=== PATIENT | female | born 1965 | race African-American/Black ===

== ENCOUNTER 2020-10-24 05:17 | Inpatient (IN) | payer MEDICAID ==
[2020-10-24] VITALS (7 sets, daily range): BP systolic 126–146; BP diastolic 62–100
[~2020-10-24] VITALS: Ht 160 cm; Wt 81.6 kg
[2020-10-24] MEDS ORDERED: LEVO-T25 MCG PO (06:02)
[2020-10-24 07:33] LABS: HEMATOCRIT 50.1 % (37.0-47.0); HEMOGLOBIN 16.6 gm/dL (12.0-15.0); MCHC 33.2 g/dL (28.0-37.0); MCV 99.5 fL (80.0-100.0); RBC 5.04 mil/uL (4.20-5.00); RDW 12.7 % (10.5-14.5); WBC 8.3 thou/uL (4.0-11.0)
[2020-10-24 07:57] LABS: ALBUMIN 4.2 g/dL (3.4-5.0); CREATININE 0.9 mg/dL (0.6-1.0); DIRECT BILIRUBIN 0.1 mg/dL (<0.1-0.2); POTASSIUM 3.5 mmol/L (3.5-5.1); TOTAL BILIRUBIN 0.7 mg/dL (0.2-1.0); TOTAL PROTEIN 8.7 g/dL (6.4-8.2)
[2020-10-24 08:04] LABS: CALCIUM 10.2 mg/dL (8.5-10.1)
[2020-10-24 08:25] LABS: URINE BILIRUBIN NEGATIVE (Negative); URINE BLOOD NEGATIVE (Negative); URINE CLARITY CLEAR; URINE COLOR YELLOW; URINE GLUCOSE-RANDOM* NEGATIVE (Negative); URINE KETONES TRACE (Negative); URINE LEUKOCYTES-REFLEX TRACE (Negative); URINE NITRITE-REFLEX NEGATIVE (Negative); URINE PROTEIN (DIPSTICK) 1+ (Negative); URINE SPECIFIC GRAVITY 1.025 (1.005-1.035)
[2020-10-24 08:33] LABS: AMP/METHAMP Negative (Negative); BARBITURATES Negative (Negative); BENZODIAZEPINES Negative (Negative); COCAINE POSITIVE (Negative); METHADONE Negative (Negative); OPIATES Negative (Negative); PCP Negative (Negative)
[2020-10-24 08:52] LABS: MUCUS 4-6 Moderate strn/LPF (None Seen)
[2020-10-24 08:54] LABS: BACTERIA-REFLEX 1-9 Few /HPF (None Seen); CASTS None Seen /LPF (None Seen); CRYSTALS None Seen /LPF (None Seen); SQUAMOUS 0-3 Few /LPF (0-3); URINE WBC-REFLEX 0-5 Rare /HPF (0-5)
[2020-10-24 08:55] LABS: URINE RBC None Seen /HPF (0-2)
--- NOTE | 2020-10-24 18:47 | NUR ---
PATIENT ADMITTED FROM ER WITH SBO, PATIENT VERY SLEEPY AND DROWSY. VOMITTED X 2, ZOFRAN 4 MG IV GIVEN. PATIENT IS NPO AT THIS TIME. RIGHT HAND IV IN PLACE, NS AT 100CC/HR STARTED. HX OF ETOH AND COCAINE USE. NICOTINE PATCH APPLIED TO LEFT UPPER ARM. HAVING HARG TO TO DO ADMISSION, PATIENT WILL NOT WAKE FOR ASSESSMENT. THIS RN CALLED DR IVORY FOR PAIN MEDS, HE STATES HE WILL ORDER SMALL DOSE OF FENTANYL. REPORT GIVEN TO ARELY/WILLIAM.
--- NOTE | 2020-10-25 04:39 | NUR ---
PROGRESS PT LETHARGIC BUT WAKES WITH PAIN LUNGS CLEAR BOWEL SOUNDS HYPOACTIVE ABDOMEN TENDER TO PALPATION. PT DRY HEAVING ON AND OFF AND RATES PAIN A 7 TO 10 TAKING FENTANYL 25 MCG IVP WITH SOME EFFECT PT SLEEPS FOR AWHILE SHORTLY AFTER MEDS GIVEN. IVF'S INFUSING ORDERED. PT REMAINS NPO ORAL SWABS FOR COMFORT, VOING QS ABDOMEN SLIGHTLY ROUND AND DISTENDED. VOIDING QS UP T BSC WITH SBA. CONTINUE TO MONITOR.
[2020-10-25 05:58] LABS: ABSOLUTE NEUTROPHILS 3.2 thou/uL (1.4-8.2); BASOPHILS 0.3 % (0.0-2.0); HEMATOCRIT 49.8 % (37.0-47.0); HEMOGLOBIN 16.9 gm/dL (12.0-15.0); LYMPHOCYTES 22.2 % (24.0-44.0); MCH 33.6 pg (26.0-34.0); MCV 98.8 fL (80.0-100.0); MONOCYTES 11.6 % (1.0-8.0); PLATELET COUNT 275 thou/uL (150-400); POLYS 65.9 % (36.0-66.0); RBC 5.05 mil/uL (4.20-5.00); RDW 12.8 % (10.5-14.5); WBC 4.8 thou/uL (4.0-11.0)
[2020-10-25 06:12] LABS: CALCIUM 9.2 mg/dL (8.5-10.1); MAGNESIUM 2.1 mg/dL (1.8-2.4); POTASSIUM 3.1 mmol/L (3.5-5.1)
--- NOTE | 2020-10-25 07:32 | NUR ---
ASSUMED CARE OF PATIENT SHE HAS N&V PULLED OUT IV. ATTEMPTED TO REPLACE WITH NO SUCESS. WILL CALL IV TEAM TO REPLACE. PT ALERT XS 4.
[2020-10-25 08:00] VITALS: BP 138/89
--- NOTE | 2020-10-25 12:38 | NUR ---
Case opened to follow for dc planning needs. Line Operator visited with the pt at bedside. She was able to participate in cm assessment but asked cm to call her dtr Randi and let her know she was here. Line Operator spoke with Randi. She confirms that the pt lives with a male friend and she is from [place]. She came to visit dtr in January/February of this year and has stayed in town. She was living with her sister in [place] prior to this. Randi confirmed that the pt has active [place] Medicaid. [facility]/UR notified. Randi is on her way over to visit with the pt. She reports pt has had a life long issue with mental health and substance abuse. She has hep c and copd as well. She is indep with gait and adl's. Randi is available as needed to help with [place] medicaid application unless pt plans to return to [place]. Cm role introduced. Pt with SBO and surgery consult pending. Will follow along and offer substance abuse resources at ms.
--- NOTE | 2020-10-25 19:31 | NUR ---
CALLED DR HELM TO INFORM HIM THATY PATIENT REFUSED NG AND PULLED IV ACSESS OUT AGAIN HE SAID TO KEEP NPO AND HE WOULD SEE 10/26/20 IV NURSE CALLED TO REPLACE IV ACSESS. PT REFUSED 2ND BAG OF KCL. DAUGHTER HERE TO SEE PATIENT
[2020-10-25 19:34] VITALS: BP 127/87
[2020-10-26] VITALS (41 sets, daily range): BP systolic 55–138; BP diastolic 17–99
--- NOTE | 2020-10-26 02:46 | NUR ---
PT OBSERVED LYING DOWN ON HER BED WITH HER EYES CLOSED.PT EASILY AROUSABLE. PT C/O PAIN ON HER ABD,MANAGED WITH MED.PT NPO AT THIS TIME.PER REPORT PT DRINKS WATER OUT OF THE SINK,EDUCATION GIVEN ON THE IMPORTANCE OF ADHERING TO TX REGIMEN.PT VOICED UNDERSTANDING.[facility] CONT WITH [facility]F ORDERED.CALL LIGHT WITHIN REACH.
--- NOTE | 2020-10-26 11:01 | NUR ---
Assummed care of pt at 0700. Pt a&ox4. C/o abd pain. Prn pain meds administered. Pt went to the OR for surgery. IVF infusing. Awaiting pt to come back to the room for recovery.
[2020-10-26 14:54] LABS: HEMATOCRIT 51.4 % (37.0-47.0); HEMOGLOBIN 16.7 gm/dL (12.0-15.0); MCHC 32.5 g/dL (28.0-37.0); MCV 101.4 fL (80.0-100.0); RBC 5.07 mil/uL (4.20-5.00); RDW 13.3 % (10.5-14.5)
[2020-10-26 14:59] LABS: WBC 1.9 thou/uL (4.0-11.0)
--- NOTE | 2020-10-26 15:45 | NUR ---
Patients daughter here at bedside. Patient more calm with her here.
[2020-10-26 16:19] LABS: CALCIUM 8.2 mg/dL (8.5-10.1); CREATININE 1.4 mg/dL (0.6-1.0); POTASSIUM 3.7 mmol/L (3.5-5.1)
--- NOTE | 2020-10-26 17:09 | NUR ---
VASCULAR ACCESS CONSULTED FOR CENTRAL LINE. PT RESTLESS UNABLE TO POSITION FOR CVAD. TL PICC DONE. PT'S LABS,MEDS,HX,ORDER AND CONSENT VERIFIED. CLAUDIA BASILIC WAS WIDELY PATENT WITH USG. 5FR TL POWER PICC TRIMMED TO 43CM INSERTED TO 1CM EXTERNAL. PT TOLERATED WELL. STAT CXR ORDERED
--- NOTE | 2020-10-26 17:28 | NUR ---
cxr too deep line withdrew for total of 4cm external. picc released for immediate use to choco herman
--- NOTE | 2020-10-26 19:16 | NUR ---
1904- Nurse informed Dr. Palomino of patient not being able to voice and only 5ml in the montes urometer. Montes has been irrigated and changed. It was noted to have thick bah colored discharge blocking the catheter tip. Nurse performed multiple bladder scans which showed to have 275ml and patient expressed she needs to void.
--- NOTE | 2020-10-26 19:50 | NUR ---
HAIR NOT DRAIN WITH MONICA 20 ML OF DARK CHRISTIANA URINE, BLADDER SCAN SHOWING GREATER THAN 200 ML OF URINE IN THE BLADDER. HAIR REPOSITIONED, URINE OUTPUT UNCHANGED. HAIR DC'D AND NEW HAIR INSERTED, IRRIGATED WITH SALINE WITH ONLY THE RETURN OF IRRIGANT AT 1800. PATIENT REPOSITIONED FOR HAIR DRAINAGE, SITLL VERY UNCOMFORTABLE AT 1830 WITH NO URINE OUTPUT VIA HAIR. HAIR DC'D AND NEW HAIR INSERTED, IRRIGATED WITH 100 ML OF STERILE WATER, WITH SMALL AMT OF CHRISTIANA URINE NOTED. PATIENT POSITIONED FOR COMFORT AND DRAINAGE. CALL PLACED TO DR. MEDINA. DR HELM IN AT 1915 AND INFORMED OF ISSUES WITH HAIR.
--- NOTE | 2020-10-26 21:10 | NUR ---
ASSUMED PT CARE AT 1900. PT A&0X4. GROANING, RATING PAIN AT 9/10 WITH HR IN 120S TO 130S AND BP SYTOLIC 80s TO 98s. DR MEDINA AT BEDSIDE; ORDERED A 500ML NS FLUID BOLUS AND STATED TO CONTINUE HAIR IRRIGATION PRN UNTIL U/O PICKS UP. PT IS SLEEPING NOW; 55ML TOTAL U/O SO FAR, HR 110s-120s WILL CONTINUE TO CLOSELY MONITOR PER POC.
--- NOTE | 2020-10-26 21:24 | NUR ---
7913- nurse talked with DR. Palomino in regards to lack of urine output. No new orders at this time.
--- NOTE | 2020-10-26 21:24 | NUR ---
2757- Nurse talked with Dr. Borrego in regards to urine output. No new orders at this time.
--- NOTE | 2020-10-26 21:25 | NUR ---
0- Nurse talked with DR. Palomino in regards to patients lack of urine output. Nurse expressed that bladder scan was performed and it showed 275ml of urine in her bladder. This was performed multiple times. Patient expresses that she needs to pee and wants the catheter out. Multiple attempts made at helping flow of urine. Nurse informed him that montes was replaced and irrigation was attempted with no results. Per Dr. Palomino, irrigate until results obtained.
[2020-10-27] VITALS (53 sets, daily range): BP systolic 73–132; BP diastolic 22–83
[2020-10-27 02:39] LABS: ABSOLUTE NEUTROPHILS 3.1 thou/uL (1.4-8.2); BASOPHILS 0.3 % (0.0-2.0); EOSINOPHILS 0.1 % (0.0-3.0); HEMATOCRIT 47.8 % (37.0-47.0); HEMOGLOBIN 15.6 gm/dL (12.0-15.0); LYMPHOCYTES 7.3 % (24.0-44.0); MCH 32.8 pg (26.0-34.0); MCHC 32.6 g/dL (28.0-37.0); MCV 100.7 fL (80.0-100.0); MONOCYTES 6.8 % (1.0-8.0); POLYS 85.5 % (36.0-66.0); RBC 4.75 mil/uL (4.20-5.00); RDW 13.1 % (10.5-14.5); WBC 3.7 thou/uL (4.0-11.0)
[2020-10-27 02:43] LABS: PLATELET COUNT 181 thou/uL (150-400)
[2020-10-27 02:56] LABS: ALBUMIN 2.1 g/dL (3.4-5.0); CALCIUM 7.3 mg/dL (8.5-10.1); CREATININE 1.9 mg/dL (0.6-1.0); POTASSIUM 3.4 mmol/L (3.5-5.1); TOTAL BILIRUBIN 2.3 mg/dL (0.2-1.0); TOTAL PROTEIN 5.3 g/dL (6.4-8.2)
--- NOTE | 2020-10-27 15:25 | NUR ---
PT RESTING FOR MAJORITY OF THE DAY. PAIN CONTROL AND BOWEL REGIMENT ARE IMPORTANT TODAY. SURGICAL SITES ARE C/D/I, NO S/S OF BLEEDING OR INFECTION. PT'S DAUGHTER WAS AT BEDSIDE FOR APPROX 1.5 HOURS TODAY. IV ACCESS TEAM WAS ASKED TO REVIEW PICC LINE PLACEMENT AND POSSIBLE PULL LINE BACK 4 CM, LINE IS DIFFICULT TO DRAW BLOOD FROM. PT IS NPO WITH SMALL AMOUNTS OF ICE CHIPS PER DR HELM. PT REFUSED NG TUBE PLACEMENT, SHE WAS EDUCATED ABOUT REFUSAL. POTASSIUM REPLACED PER [facility] PROTOCAL. PT AND DAUGHTER WERE UPDATED AND EDUCATED ON PT CONDITION AND POC. PT PROGRESSING TOWARDS POC. LABS/IMAGES/MEDS REVIEWED.
[2020-10-28] VITALS (37 sets, daily range): BP systolic 94–139; BP diastolic 59–87
--- NOTE | 2020-10-28 00:44 | NUR ---
ASSUMED PT CARE AROUND 1900. SHE IS ABLE TO ANSWER ORIENTATION QUESTIONS. C/O GENERALIZED ABDOMINAL PAIN. PRN PAIN MEDICATION GIVEN PER EMAR. ABDOMINAL SURGICAL DRESSINGS C/D/I. IVF INFUSING ORDERED. SBP HAS REMAINED >90 SO FAR TONIGHT. SHE IS STILL TACHYCARDIC WITH HR 120S-130S. INCREASED O2 FROM 5L NC TO 6L NC SPO2 WAS 89% WHILE SLEEPING. PT IS RESTING COMFORTABLY IN BED AT THIS TIME. NO ACUTE DISTRESS NOTED. PROGRESSING SLOWLY TOWARD POC GOALS. WILL CONTINUE TO MONITOR.
--- NOTE | 2020-10-28 05:51 | NUR ---
NO SIGNIFICANT EVENTS OVER NIGHT. PT HAD LOW-GRADE FEVER EARLIER THIS MORNING, BUT IT HAS SINCE RESOLVED. HAIR TO DD W/ ADEQUATE URINE OUTPUT. SHE CONTINUES TO C/O ABDOMINAL PAIN. SHE SLEEPS AFTER DOSES OF PAIN MEDICATION. NO BOWEL MOVEMENT THIS SHIFT, BUT PT STATES SHE IS PASSING FLATUS. BOWEL SOUNDS AUSCULTATED TO BE MORE ACTIVE THIS MORNING. PROGRESSING SLOWLY TOWARD POC GOALS. WILL GIVE REPORT TO ONCOMING NURSE.
--- NOTE | 2020-10-28 08:37 | NUR ---
0820-UP TO CHAIR.--VW
[2020-10-28 10:57] LABS: HEMATOCRIT 40.8 % (37.0-47.0); MCH 32.8 pg (26.0-34.0); MCHC 32.7 g/dL (28.0-37.0); MCV 100.2 fL (80.0-100.0); RBC 4.08 mil/uL (4.20-5.00); WBC 9.4 thou/uL (4.0-11.0)
[2020-10-28 11:03] LABS: HEMOGLOBIN 13.4 gm/dL (12.0-15.0)
[2020-10-28 11:09] LABS: CALCIUM 8.5 mg/dL (8.5-10.1); CREATININE 1.2 mg/dL (0.6-1.0); MAGNESIUM 1.8 mg/dL (1.8-2.4); POTASSIUM 3.2 mmol/L (3.5-5.1)
--- NOTE | 2020-10-28 11:16 | EKG ---
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: DREA : 1965 Requested By: José Antonio Borrego Order Number: [id number] MD: Jet Jimenez Measurements Intervals Burns Rate: 134 P: 51 AK: 102 QRS: 29 QRSD: 80 T: 19 QT: 339 QTc: 506 Interpretive Statements Sinus tachycardia Ventricular premature complex Aberrant complex Probable left atrial enlargement Borderline T abnormalities, inferior leads Borderline prolonged QT interval No previous ECG available for comparison Electronically Signed On 10-28-2020 11:16:34 LABORATORY CUREMAN by Jet Jimenez [email or web address] <ELECTRONICALLY SIGNED> By: Jet Jimenez MD, [facility] 10/28/20 1116 D: 12/1000 00 Jet Jimenez MD, FACC /EPI
[2020-10-29] VITALS (30 sets, daily range): BP systolic 86–125; BP diastolic 54–80
[2020-10-29 05:48] LABS: HEMATOCRIT 35.6 % (37.0-47.0); HEMOGLOBIN 11.8 gm/dL (12.0-15.0); MCH 33.1 pg (26.0-34.0); MCHC 33.1 g/dL (28.0-37.0); MCV 100.2 fL (80.0-100.0); RBC 3.55 mil/uL (4.20-5.00); WBC 8.9 thou/uL (4.0-11.0)
[2020-10-29 05:58] LABS: CALCIUM 7.9 mg/dL (8.5-10.1); POTASSIUM 3.5 mmol/L (3.5-5.1)
--- NOTE | 2020-10-29 07:22 | NUR ---
Pt has remained stable over night. Remains alert, oriented x4, CIWA initially 3-4, now 0. Pt given IVP Ativan x 1 at beginning of shift and was able to rest comfortably during the night. Dilaudid given x2 for c/o of generalized pain pt rated 10/10. No attempts OOB by self, but high fall risk precautions maintained. Pt remains NPO except for occasional ice chips, abdomen soft but distended, bowel sounds tympanic. Midline incision and lap sites remain clean, dry and intact with briana. No new signs of skin breakdown. O2 remains at 4 L per cannula, sat > 92%.
--- NOTE | 2020-10-29 16:36 | HC ---
[facility] [place] [address] CONSULTATION Name: NAVA WALLACE Room #: 249-P ADM IN M.R.#: [id number] Admission: 10/24/20 Attend Phys: Yair Champion MD Discharge: Date of : 63 Report #: [id number] THIS REPORT FOR: cc: FAM - No family physician/PCP FAM - No family physician/PCP Thong Santos MD ~ DATE OF SERVICE: 10/27/2020 INFECTIOUS DISEASE CONSULTATION REASON FOR CONSULTATION: I was asked to evaluate concerning peritonitis. HISTORY OF PRESENT ILLNESS: The patient was a 54-year-old with polysubstance abuse including cocaine and alcohol as well as tobacco. Also, has a history of pancreatitis and hepatitis C. Admitted on 10/24/2020 with abdominal pain. She was found to have a small-bowel obstruction. Taken to surgery last evening where she was found to have perforated jejunum. This area was resected and primary anastomosis. Postoperatively, she has had hypotension and tachycardia. She has been receiving IV fluids. She has low urine output. She has been stable on oxygen per nasal cannula. She remains alert and conversant. Minimal cough or sputum production. No chest pain. She has an indwelling Arndt catheter. She has a right upper extremity PICC. REVIEW OF SYSTEMS: A 14-point review was negative, other than what has been described above. ALLERGIES: BACTRIM. MEDICATIONS: Zosyn and that recorded on her JAN, which was reviewed. Preoperatively was on levothyroxine. PAST MEDICAL HISTORY: Hypothyroidism, COPD, hepatitis C, polysubstance abuse. FAMILY HISTORY: Noncontributory. SOCIAL HISTORY: As noted above. Unclear if she has been treated for hepatitis C. PHYSICAL EXAMINATION: VITAL SIGNS: She was afebrile, heart rate was 130, blood pressure 90/54. GENERAL: She was alert and cooperative. SKIN: Without rash or decubitus. She had multiple tattoos. No palpable adenopathy. EYES: Without scleral icterus. MOUTH: Without mucositis. [facility] [address] [place] [address] CONSULTATION Name: NAVA WALLACE Room #: 249-P [facility] IN ..#: [id number] Admission: 10/24/20 Attend Phys: Yair Champion MD Discharge: Date of : 63 Report #: [id number] LUNGS: Clear anteriorly. HEART: Regular, without murmur, gallop or rub. ABDOMEN: Distended, diffusely tender. EXTREMITIES: Without clubbing, cyanosis or edema. LABORATORY DATA: Reviewed, noting her creatinine, baseline is 0.9, now up to 1.9 with a GFR of 33, AST 41, bilirubin 2.3. Drug screen positive for cocaine. Hemoglobin 15.6, WBC 3.7, 85% segs, 7% lymphs, hemoglobin 15.6, platelets 181,000. Urinalysis unremarkable. Blood cultures are pending. No intraoperative cultures obtained. IMPRESSION: Peritonitis from small bowel perforation. Postoperative day #1 from segmental resection and anastomosis, septic shock, polysubstance abuse including alcohol, cocaine, tobacco, history of pancreatitis, hepatitis C, hypothyroidism, chronic obstructive pulmonary disease. RECOMMENDATIONS: We will continue broad antibiotic coverage with Zosyn. Continue fluid resuscitation. Serial laboratory studies. Await blood culture results. Maintain in ICU. General Surgery to follow. <ELECTRONICALLY SIGNED> By: Thong Santos MD 10/29/20 1636 1545 1931 Thong Santos MD /nt
--- NOTE | 2020-10-29 18:03 | NUR ---
RECEIVED PT'S CARE AROUND 0710; PT. ON BED; RESTING WITH EYES CLOSED; ST ON THE MONITOR; RR ABOVE 24; AFTER SHIFT CHANGED REQUESTED PRN PAIN MEDICATION; WHEN BACK WITH PAIN MEDICATION P. RESTING WITH EYES CLOSED; DURING AM ASSESMENT SLEEP INTERRUPTED; AM MEDICATIONS GIVEN; REMAINED ABOUT NPO WHEN ASKED IF CAN IT SOMETHING; ABLE TO HAVE A BM EARLY ON THE AFTERNOON; DURING THE AFTERNOON; PT. RESTLESS; PRN LORAZEPAM GIVEN; REASSESSMENT PT. RESTING WITH EYES CLOSED; ASSESSMENT CHARGED; FOLLOWING POC; WILL PASS ON REPORT;
[2020-10-30] VITALS (22 sets, daily range): BP systolic 89–148; BP diastolic 48–99
--- NOTE | 2020-10-30 03:02 | NUR ---
ASSUMED PT CARE AT 1900. HR 120S-130S. OTHER VSS. PT SLEPT MOST OF THE NOC, SHE IS A&0X4. CIWA RANGES FROM 0-4. PT HAD A BM THIS SHIFT. ON 2L NC. PT GOT RESTLESS AROUND MIDNIGHT WHEN SHE HAD HER BM. SHE COMPLIANED OF PAINAND IT WAS MANAGED PER MAR. PT IS STABLE NOW. SLEEPING, WILL CONTINUE TO MONITOR PER POC
[2020-10-30 06:30] LABS: HEMATOCRIT 37.1 % (37.0-47.0); HEMOGLOBIN 12.2 gm/dL (12.0-15.0); MCH 32.9 pg (26.0-34.0); MCHC 32.9 g/dL (28.0-37.0); MCV 99.8 fL (80.0-100.0); RBC 3.71 mil/uL (4.20-5.00); RDW 13.2 % (10.5-14.5); WBC 7.5 thou/uL (4.0-11.0)
[2020-10-30 06:49] LABS: CALCIUM 8.7 mg/dL (8.5-10.1); CREATININE 0.8 mg/dL (0.6-1.0); MAGNESIUM 1.8 mg/dL (1.8-2.4); POTASSIUM 3.3 mmol/L (3.5-5.1)
--- NOTE | 2020-10-30 10:28 | O ---
[facility] [place] [address] OPERATIVE REPORT Name: NAVA WALLACE Room #: 249-P ADM IN M.R.#: [id number] Admission: 10/24/20 Attend Phys: Yair Champion MD Discharge: Date of : 63 Report #: [id number] THIS REPORT FOR: cc: FAM - No family physician/PCP FAM - No family physician/PCP Mika Palomino MD ~ DATE OF SERVICE: 10/26/2020 PREOPERATIVE DIAGNOSIS: Small-bowel obstruction. POSTOPERATIVE DIAGNOSES: 1. Small-bowel obstruction. 2. Small bowel perforation. OPERATION: 1. Diagnostic laparoscopy. 2. Exploratory laparotomy with small bowel resection and single anastomosis. SURGEON: Mika Palomino MD ANESTHESIA: General. ESTIMATED BLOOD LOSS: 100 mL. SPECIMEN: Small bowel. DESCRIPTION OF PROCEDURE: After informed consent was obtained, the patient was brought to the operating room and placed supine. SCDs were placed and working, preoperative antibiotics were administered, general anesthesia was induced. The abdomen was prepped and draped in the usual sterile fashion. A 5 mm incision was made in the left upper quadrant. A 5 mm trocar was placed under direct vision. Two left-sided 5 mm trocars were placed under direct vision. Exploratory laparoscopy was performed. There was a significant amount of dilated small bowel. I ran the small bowel. During this running of the bowel, I could see that there was a perforation in the mid jejunum. At this point, I elected to perform a laparotomy. The laparoscopic instruments were removed. Laparotomy incision was made from above the umbilicus down to approximately 3 cm below the umbilicus. Fascia was incised and a retractor was placed. Immediately, there was a burt of succuss. This was all suctioned out. I identified the area of perforation of the mall bowel and bowel clamps were placed proximally and distally to this. [facility] [address] [place] [address] OPERATIVE REPORT Name: NAVA WALLACE Room #: 249-P ADM IN M.Amanda.#: [id number] Admission: 10/24/20 Attend Phys: Yair Champion MD Discharge: Date of : 63 Report #: [id number] I then performed adhesiolysis. I ran the small bowel from the ligament of Treitz to the cecum. In the distal jejunum, it was adherent up to the abdominal wall. The bowel was retracted posteriorly and then I freed it up from the peritoneum using Metzenbaum scissors, taking great care not to injure the actual bowel. After this had been done, all the small bowel was free and there was no more evidence of obstruction. I then performed a small-bowel anastomosis given that there were actually three areas of perforation in this 10 cm segment of small bowel. Approximately 15 cm of small bowel was resected. I stapled it proximally and distally with a KEYSHAWN blue load stapler. Mesentery was ligated using a LigaSure device. I then performed a eoaz-kv-jjli functional end-to-end anastomosis, bringing the bowel together [id number]. It was stapled with a KEYSHAWN-75 stapler [id number]-[id number]-ioot. The common enteroenterostomy was stapled with a KEYSHAWN blue load stapler as well. There was good hemostasis. The anastomosis was widely patent. The mesentery was closed with interrupted 3-0 silk sutures. The abdomen was copiously irrigated with normal saline. The fascia was closed with #1 looped PDS in running fashion. Skin was closed with briana. Sterile dressings were applied. COMPLICATIONS: None. DISPOSITION: The patient was taken to recovery in satisfactory condition. <ELECTRONICALLY SIGNED> By: Mika Palomino MD 10/30/20 1028 1242 1255 Mika Palomino MD /nt
--- NOTE | 2020-10-30 14:40 | NUR ---
ON-GOING ASSESSMENT: CM REVIEWED CHART. PT IS STILL ON CIWA AND SOMEWHAT TACHY. OUTPATIENT RESOURCES FOR DRUG/SUBSTANCE USE PLACED IN DISCHARGE PAPERWORK INCLUDING RESOURCES FOR [facility] AND [facility]. PT IS GOING TO BE STARTED ON CLD. CM WILL CONTINUE TO FOLLOW TO ASSIST NEEDED.
--- NOTE | 2020-10-30 19:55 | NUR ---
ASSESSMENT CHARTED - MEDS PER JAN - PATIENT GIVEN HYDROMORPHONE X 2 DOSES WITH GOOD RELIEF ON PAIN AND ANXIETY THIS SHIFT. WHEN PATIENT NEEDING TO HAVE BM BECOMES EXTREMELY ANXIOUS AND SOB WIITH EXERTION THRASHES AROUND THE BED AND DIFFICULT TO CALM BACK DOWN. 2 VIEW KUB DONE AND SHOWS POSSIBLE ILIEUS - RESULTS CALLED TO SURGEON. PAIENT HAS REMAINED IN BED THIS SHIFT PT ADVANCED TO CLEAR LIQUID DIET - HAS TOLERATED 1 SMALL CAN OF 7-UP AND 1 JELLO CUP - WITH XRAY RESULTS STATED TO GO SLOWLY WITH DIET. PT TO HAVE CT OF CHEST DONE WITH PE PROTOCOL. PT RESTING QUIELTY AT THE PRESENT TIME WITH NO COMPLAINTS.
[2020-10-31] VITALS (24 sets, daily range): BP systolic 107–134; BP diastolic 62–91
--- NOTE | 2020-10-31 06:14 | NUR ---
ASSUMED PT CARE AT 1900. VSS. PT A&0X4 BUT DROWSY. PT HAS SEVERAL FREQUENT LOOSE STOOLS THROUGH THE NOC, FISH EGG PACKER KYLE NOTIFIED TO REQUEST FOR A FMS PLACEMENT. PT RESTED WELL ALL NOC, PAIN MANAGED PER JAN. PT TRANSPORTED TO CT FOR PE PRT. PT IS STABLE. HR STILL IN THE 120s-130s. WILL CONTINUE TO MONITOR PER POC.
[2020-10-31 06:20] LABS: CALCIUM 7.1 mg/dL (8.5-10.1); CREATININE 2.1 mg/dL (0.6-1.0); MAGNESIUM 1.7 mg/dL (1.8-2.4)
[2020-10-31 06:22] LABS: POTASSIUM 2.9 mmol/L (3.5-5.1)
[2020-10-31 06:45] LABS: HEMATOCRIT 33.6 % (37.0-47.0); HEMOGLOBIN 11.3 gm/dL (12.0-15.0); MCH 33.4 pg (26.0-34.0); MCHC 33.7 g/dL (28.0-37.0); MCV 99.1 fL (80.0-100.0); RBC 3.39 mil/uL (4.20-5.00); WBC 7.8 thou/uL (4.0-11.0)
--- NOTE | 2020-10-31 13:19 | NUR ---
VASCULAR ACCESS CONSULTED TO FIX COILED PICC LINE SEEN ON CT CHEST, COILED AND GOING UP RIJ. ATTEMPTED TO REPOSITION WITH POWER FLUSHING. EXTERNAL NOW 7CM, PT MOVING ARM AND NOT FOLLOWING DIRECTIONS,UNCOOPERATIVE, REDRESSED AND STAT CXR ORDERED
--- NOTE | 2020-10-31 14:21 | NUR ---
ON-GOING ASSESSMENT: CM REVIEWED CHART. NEPHROLOGY WAS CONSULTED AND SAW PT DUE TO ELEVATED SMALL BUSINESS DIRECTOR. PT IS CURRENTLY ON 4L OXYGEN. CM RECEIVED A CALL FROM PTS DAUGHTER LINDSAY TO GET AN UPDATE ON STATUS OF MEDICAID MONICA. SHE REPORTS HEMALATHA FROM [employer] HAD SPOKE WITH HER AND DID NOT KNOW IF THERE WAS AN UPDATE. CM NOTIFIED HER IT APPEARS FROM EMAIL THAT MONICA IS PENDING BUT CM LEFT A VM FOR HEMALATHA TO CONTACT PTS DAUGHTER. CM WILL CONTINUE TO FOLLOW TO ASSIST NEEDED.
--- NOTE | 2020-10-31 17:06 | PATH ---
[facility] [address] [place] [address] PATHOLOGY RPT PROCEDURE Name: RANI WALLACE Room #: 249-P ADM IN M.R.#: [id number] Admission: 10/24/20 Date of : 63 Discharge: Report #: [id number] Path Case #: [id number] [facility] Accession Number: [id number] . 01 Material submitted: . small bowel - SMALL BOWEL . 01 Clinical history: . SMALL BOWEL OBSTRUCTION . 02 Diagnosis: Small bowel, resection: - Transmural congestion of the small bowel with focal ischemic changes as well as perforation. - Multiple serosal adhesions. - Focal anastomotic line identified. - Margins examined with viable mucosa on the short segments. - Larger segment margins with focal mild ischemic changes. - Negative for dysplasia or malignancy. (IUV:tai; 10/31/2020) QMS 10/31/2020 1701 Local . 02 Electronically signed: . Zari Amador MD, Pathologist NPI- [id number] . 01 Gross description: . The specimen is received in formalin, labeled "Rani Wallace, small bowel". Received are three segments of bowel, two of which are adhesed/possibly anastomosed to each other, ranging in length from 4.3 to 18.9 cm, and ranging in diameter from 2.4 to 3.3 cm. All margins are stapled. The serosal surfaces are dusky prajapati-brown in appearance. The attached mesenteric fat measures 1.3 cm in thickness on the larger segment, and 1.8 cm in thickness on the two smaller segments. The serosal surface on the larger segment displays a 0.4 x 0.3 cm circular defect, suggestive of possible perforation. The larger segment is opened along the antimesenteric line to reveal dusky prajapati-brown mucosa with moderate architectural folds. No distinct nodules or lesions are noted grossly. Sectioning through the attached mesenteric fat of the larger segment reveals no readily identifiable lymph nodes. Opening the smaller segment reveals prajapati-brown mucosa with moderate architectural folds. There is an anastomotic line of briana identified measuring 4.2 cm in length. No distinct nodules or lesions are noted grossly. . Also received within the specimen container are two additional segments of small bowel, with one margin being stapled and the opposite margin being ragged in appearance, measuring 3.5 x 1.5 x 1.0 and 5.6 x 1.9 x 1[place]0 [place] [address] PATHOLOGY RPT PROCEDURE Name: RANI WALLACE Room #: 249-P ADM IN M.R.#: [id number] Admission: 10/24/20 Date of : 63 Discharge: Report #: [id number] Path Case #: [id number] greatest dimensions. The mucosa is light brown to prajapati-brown in appearance with moderate architectural folds. No distinct nodules or lesions are noted grossly. The specimen is submitted representatively as follows: . A1-A2 both margins of larger segment A3 entire area of possible perforation of larger segment A4 strategic partnership representative cross-sections of larger segment A5-A8 all 4 stapled margins from smaller segment A9 strategic partnership representative sections through anastomotic line of smaller segment A10 strategic partnership representative sections of mucosa on either side of anastomotic line from smaller segment A11-A12 strategic partnership representative sections from separately submitted segments of small bowel. . Gross photographs are taken. Please refer to photographs for diagram of sections submitted. (CAA; 10/30/2020) QAC/QAC 10/30/2020 1325 Local . 02 Pathologist provided ICD-10: K56.609 . 02 CPT . 241747 Specimen Comment: A courtesy copy of this report has been sent to [phone] Specimen Comment: [id number] Specimen Comment: Report sent to / DR IVORY Performed at: [address], [place] [id number] MD Phan Lowe MD Phone: [phone] Performed at: [address] [id number] MD Zari Amador MD Phone: [phone]
--- NOTE | 2020-10-31 17:29 | NUR ---
ASSUMED CARE OF PT AT SHIFT CHANGE. ASSESSMENTS CHARTED. MEDS GIVEN PER JAN. PT A&OX4, FORGETFUL. ON 4L NC. ONE LOOSE STOOL. PICC LINE IN PROPER PLACE. HAIR IN PLACE. C/O PAIN TREATED WITH IV MEDS ALLOWING PT TO SLEEP MOST OF THE DAY. NO DISTRESS NOTED DURING SHIFT. PT TRANSFERRED TO CCU, 208. REPORT GIVEN TO KAVITHA.
[2020-11-01 00:30] VITALS: BP 132/93
--- NOTE | 2020-11-01 03:43 | NUR ---
Assumed pt care at 1900. Pt is sleeping upon arrival to room. Vebalizes pain and pain med administered upon request. No sign of distress noted. Fall precaution in place. Assessment completed and documented. Tachycardia noted in heart rhthym through the night. STEEL BUFFER notified. Scheduled meds administered to pt. No acute events overnight. Continue to monitor. No further needs at this time
[2020-11-01 04:07] VITALS: BP 139/98
[2020-11-01 05:36] LABS: MCH 33.1 pg (26.0-34.0); MCHC 33.4 g/dL (28.0-37.0); RBC 3.63 mil/uL (4.20-5.00); RDW 12.8 % (10.5-14.5); WBC 12.2 thou/uL (4.0-11.0)
[2020-11-01 05:54] LABS: CALCIUM 8.6 mg/dL (8.5-10.1); MAGNESIUM 1.9 mg/dL (1.8-2.4)
[2020-11-01 05:56] LABS: CREATININE 0.8 mg/dL (0.6-1.0)
[2020-11-01 07:36] VITALS: BP 132/89
[2020-11-01 11:49] VITALS: BP 133/94
[2020-11-01 15:02] VITALS: BP 132/97
--- NOTE | 2020-11-01 18:23 | NUR ---
ASSESSMENT DOCUMENTED, LOW GRADE FEVER, AND TACHYCARDIC ON THE MONITOR. HAIR DISCONTINUED AND PATIENT VOIDING. C/O ABD PAIN MEDICATED NEEDED, TOLERATING FULL LIQUID DIET AND WILL CONTINUE WITH POC.
[2020-11-01 21:50] VITALS: BP 121/83
[2020-11-02 04:27] VITALS: BP 127/86
--- NOTE | 2020-11-02 06:11 | NUR ---
ASSUMED PATIENT CARE AT 1845. VITAL SIGNS STABLE WITH PATIENT HAVING NO COMPLAINTS OF NAUSEA. PATIENT DID COMPLAIN OF PAIN FREQUENTLY IN ABDOMEN WHICH WAS TREATED APPROPRIATELY THROUGH MEDICATIONS. FULLY ORIENTED, PATIENT IS ABLE TO PARTICIPATE IN CARE AND CALL APPROPRIATELY FOR NEEDS. PATIENT REMAINS ON OXYGEN AND IS HAVING NO TROUBLES BREATHING EVIDENCED BY ASSESSMENTS AND SPOT OXYGENATION CHECKS. UP MULTIPLE TIMES TO THE BEDSIDE COMMODE WITH ASSISTANCE INCIDENT FREE. CONTINUE PLAN OF CARE.
[2020-11-02 09:05] VITALS: BP 129/74
[2020-11-02 12:18] VITALS: BP 109/71
[2020-11-02 16:19] VITALS: BP 131/89
--- NOTE | 2020-11-02 18:05 | NUR ---
ASSESSMENT DOCUMENTED, AND VSS. C/O ABD PAIN MEDICATED INDICATED. AND WILL CONTINUE WITH POC.
[2020-11-02 19:37] VITALS: BP 109/76
[2020-11-03 04:45] VITALS: BP 116/77
--- NOTE | 2020-11-03 05:13 | NUR ---
ASSUMED PATIENT CARE AT 1845. VITAL SIGNS STABLE WITH PATIENT HAVING NO COMPLAINTS OF NAUSEA. PATIENT DID COMPLAIN OF ABDOMINAL PAIN WHICH WAS TREATED APPROPRIATELY THROUGH MEDICATION. FULLY ORIENTED, PATIENT IS ABLE TO CALL APPROPRIATELY FOR NEEDS. REGULAR DIET TOLERATED WELL. PATIENT UP MULTIPLE TIMES TO BEDSIDE COMMODE WITH ASSISTANCE INCIDENT FREE. CONTINUE PLAN OF CARE.
[2020-11-03 07:50] VITALS: BP 119/82
--- NOTE | 2020-11-03 10:13 | NUR ---
PT ALERT AND ORIENTED TIMES FOUR. VSS. PT C/O ABD PAIN MEDS GIVEN THIS MORNING WITH SOME RELEIF. PT TOLERATES MEDS AND MEALS. PT UP TO BSC WITH STANDBY ASSIST. PT PROGRESSING TOWRADS POC GOALS.
[2020-11-03 11:30] VITALS: BP 119/85
[2020-11-03 16:30] VITALS: BP 110/79
[2020-11-03 20:58] VITALS: BP 121/86
--- NOTE | 2020-11-04 04:02 | NUR ---
VSS-AFEBRILE. LUNGS DBOLN-3-9RLZ IN PLACE. LUNGS TIGHT, REQUIRED BREATHING TREATMENTS OVERNIGHT TO EASE BREATHING. C/O SIGNIFICANT ABDOMINAL PAIN THAT IS WELL RELIEVED WITH PRESCRIBED PAIN MEDICATIONS. ABDOMEN IS DISTENDED AND SOMEHWAT FIRM, BS ARE HYPOACTIVE. SPORADIC SINGLE SIMÓN REMAIN IN PLACE. OPEN ABDOMINAL INCISION REDRESSED, PRIOR DRESSING SOAKED WITH SEROSANGUINEOUS FLUID. OOB WITH SBA-STEADY ON FEET. CALLS APPROPRIATELY FOR ANY NEEDED ASSISTANCE.
[2020-11-04 05:45] VITALS: BP 110/78
[2020-11-04 08:25] VITALS: BP 127/88
[2020-11-04 11:35] VITALS: BP 103/72
[2020-11-04 14:14] LABS: ABSOLUTE NEUTROPHILS 10.2 thou/uL (1.4-8.2); BASOPHILS 0.6 % (0.0-2.0); EOSINOPHILS 0.4 % (0.0-3.0); HEMOGLOBIN 10.7 gm/dL (12.0-15.0); LYMPHOCYTES 11.3 % (24.0-44.0); MCH 32.4 pg (26.0-34.0); MCHC 32.6 g/dL (28.0-37.0); MCV 99.5 fL (80.0-100.0); MONOCYTES 6.2 % (1.0-8.0); PLATELET COUNT 282 thou/uL (150-400); POLYS 81.5 % (36.0-66.0); RBC 3.31 mil/uL (4.20-5.00); RDW 13.2 % (10.5-14.5); WBC 12.6 thou/uL (4.0-11.0)
[2020-11-04 15:15] LABS: ALBUMIN 1.8 g/dL (3.4-5.0); CALCIUM 8.5 mg/dL (8.5-10.1); CREATININE 0.7 mg/dL (0.6-1.0); MAGNESIUM 1.8 mg/dL (1.8-2.4); POTASSIUM 3.5 mmol/L (3.5-5.1); TOTAL BILIRUBIN 0.5 mg/dL (0.2-1.0); TOTAL PROTEIN 6.7 g/dL (6.4-8.2)
[2020-11-04 16:30] VITALS: BP 126/82
--- NOTE | 2020-11-04 18:23 | NUR ---
ASSUMED CARE PT SHIFT CHANGE.ASSESSMENT CHARTED.MEDS GIVEN PER JAN. PT ALERT AND ORIENTED VSS C/O PAIN ABDOMEN MAANGED WITH IV PAIN MEDS. O2 SATS WNL ON 2L O2. PT UP WALKING TOELRATING FAIR C/O SOB. BREATHIGN TX PRN AND SCHEDULED. DTR VISITED WITH PT TODAY. ABDOMEN WITH SIMÓN, MINIMAL DRAINAGE BOTTOM AREA ABDOMEN COVERED WITH DRESSING. PT HAD LARGE BM THIS SHIFT. APPETITE ADEQUATE. DENIES NEEDS CONCERNS. WILL CONT TO MONITOR AND FOLLOW POC. WILL PASS ON REPORT TO NOC RN
[2020-11-04 19:20] LABS: BE(vivo) -0.4 mmol/L (-2 to +3); HCO3 22.2 mmol/L (22.0-26.0); PCO2 30.3 mmHg (35.0-45.0); PO2 63.3 mmHg (80.0-100.0); pH 7.482 (7.360-7.450)
[2020-11-04 22:40] VITALS: BP 122/89
[2020-11-05 04:17] VITALS: BP 95/62
--- NOTE | 2020-11-05 04:50 | NUR ---
PT TRANSFERRING TO BEDSIDE COMMODE AND IS TOLERATING FAIR. LORTAB, DILAUDID AND FENTANYL PROVIDING PAIN RELIEF. RESTING COMFORTABLY. NO NEEDS VOICED. CALL LIGHT WITHIN REACH. FREQUENT OBSERVATION.
[2020-11-05 08:05] VITALS: BP 113/76
[2020-11-05 08:28] LABS: ABSOLUTE NEUTROPHILS 10.7 thou/uL (1.4-8.2); BASOPHILS 0.3 % (0.0-2.0); HEMATOCRIT 34.1 % (37.0-47.0); HEMOGLOBIN 11.1 gm/dL (12.0-15.0); LYMPHOCYTES 8.7 % (24.0-44.0); MCH 32.1 pg (26.0-34.0); MCHC 32.4 g/dL (28.0-37.0); MONOCYTES 4.6 % (1.0-8.0); POLYS 86.4 % (36.0-66.0); RBC 3.45 mil/uL (4.20-5.00); WBC 12.4 thou/uL (4.0-11.0)
[2020-11-05 08:32] LABS: PLATELET COUNT 448 thou/uL (150-400)
[2020-11-05 08:55] LABS: CALCIUM 8.6 mg/dL (8.5-10.1); CREATININE 0.8 mg/dL (0.6-1.0); MAGNESIUM 1.9 mg/dL (1.8-2.4); POTASSIUM 4.3 mmol/L (3.5-5.1); TOTAL BILIRUBIN 0.4 mg/dL (0.2-1.0); TOTAL PROTEIN 7.4 g/dL (6.4-8.2)
--- NOTE | 2020-11-05 15:58 | NUR ---
ASSUMED CARE AT SHIFT CHANGE, ALERT AND ORIENTED X4, WALKING THE HALLWAYS, AND VSS. DR ROSS NOTIFIED ABOUT PATIENT 5-6 SECONDS, NEW ORDERS RECIEVED AND WILL CONTINUE TO MONITOR PATIENT.
[2020-11-05 20:22] VITALS: BP 118/83
[2020-11-06] VITALS (7 sets, daily range): BP systolic 112–152; BP diastolic 70–97
[2020-11-06 04:07] LABS: ABSOLUTE NEUTROPHILS 7.1 thou/uL (1.4-8.2); BASOPHILS 0.2 % (0.0-2.0); EOSINOPHILS 0.4 % (0.0-3.0); HEMATOCRIT 33.9 % (37.0-47.0); HEMOGLOBIN 11.4 gm/dL (12.0-15.0); LYMPHOCYTES 19.5 % (24.0-44.0); MCH 33.4 pg (26.0-34.0); MCHC 33.6 g/dL (28.0-37.0); MCV 99.5 fL (80.0-100.0); MONOCYTES 7.6 % (1.0-8.0); PLATELET COUNT 505 thou/uL (150-400); POLYS 72.3 % (36.0-66.0); RDW 13.2 % (10.5-14.5); WBC 9.8 thou/uL (4.0-11.0)
[2020-11-06 04:21] LABS: CALCIUM 8.4 mg/dL (8.5-10.1); CREATININE 0.8 mg/dL (0.6-1.0)
[2020-11-06 04:24] LABS: POTASSIUM 3.2 mmol/L (3.5-5.1)
--- NOTE | 2020-11-06 07:18 | EKG ---
[place] [address] [facility] [place] [address] ELECTROCARDIOGRAM REPORT Name: NAVA WALLACE Room #: 208-P ADM IN M.R.#: [id number] Admission: 10/24/20 Attend Phys: Yair Champion MD Discharge: Date of : 63 Report #: [id number] [facility] Test Date: 2020-11-05 Test Time: 16:30:32 Pat Name: NAVA WALLACE Department: Room: 208 P Gender: F Lead Business Systems Analyst: : 1965 Requested By: Radha Ayala Order Number: [id number] MD: Yunior Keller Measurements Intervals [place] Rate: 92 P: 86 HI: 145 QRS: 54 QRSD: 82 T: 38 QT: 388 QTc: 481 Interpretive Statements Sinus rhythm Anteroseptal infarct, old Minimal diffuse ST elevation, consider pericarditis, repolarization, or injury Compared to ECG 10/27/2020 10:01:36 Septal Q waves are now present Sinus tachycardia is no longer present Repolarization abnormality is now present Electronically Signed On 11-06-2020 7:17:53 SENIOR C WEB DEVELOPER by Yunior Keller [email or web address] <ELECTRONICALLY SIGNED> By: Yunior Keller MD, [facility] 11/06/20 0717 1630 1630 Yunior Keller MD, [facility] /EPI
--- NOTE | 2020-11-06 07:34 | EKG ---
[address] [address] ELECTROCARDIOGRAM REPORT Name: NAVA WALLACE Room #: 208-P ADM IN M.R.#: [id number] Admission: 10/24/20 Attend Phys: Yair Champion MD Discharge: Date of : 63 Report #: [id number] [facility] Test Date: 2020-11-06 Test Time: 07:32:44 Pat Name: NAVA WALLACE Department: Room: 208 P Gender: F Placement Manager: DREA : 1965 Requested By: Radha Ayala Order Number: [id number] MD: Jet Jimenez Measurements Intervals [place] Rate: 106 P: 83 DC: 139 QRS: 58 QRSD: 70 T: 46 QT: 367 QTc: 488 Interpretive Statements Sinus tachycardia Probable left atrial enlargement Borderline prolonged QT interval Compared to ECG 11/05/2020 16:30:32 Sinus rhythm no longer present Myocardial infarct finding no longer present ST (T wave) deviation no longer present Electronically Signed On 11-06-2020 7:34:09 MASKING MACHINE OPERATOR by Jet Jimenez [email or web address] <ELECTRONICALLY SIGNED> By: Jet Jimenez MD, [facility] 11/06/20 0734 Jet Jimenez MD, [facility] /EPI
--- NOTE | 2020-11-06 07:52 | NUR ---
SCHEDULED PAIN PILL GIVEN.NO RELIEF.MONITOR SHOWS SR,ST.POC CONTINUED.
[2020-11-06] MEDS ORDERED: PEPCID20 MG PO (10:06)
[2020-11-06] MEDS ORDERED: HYDROCODON-ACE1 EAC7 PO (10:06)
[2020-11-06] MEDS ORDERED: AUGMENTIN 875-1 EACH PO (10:06)
[2020-11-06] MEDS ORDERED: COMBIVENT INH (10:10)
--- NOTE | 2020-11-06 10:16 | 2DMMODE ---
[facility] [address] [place] [address] 2 D/M-MODE ECHOCARDIOGRAM Name: NAVA WALLACE Room #: 208-P ADM IN M.R.#: [id number] Admission: 10/24/20 Attend Phys: Yair Champion MD Discharge: Date of : 63 Report #: [id number] THIS REPORT FOR: cc: OUMAR - No family physician/PCP OUMAR - No family physician/PCP Chivo Vaz MD ~ APPROVED REPORT Study performed: 11/06/2020 09:36:50 EXAM: Comprehensive 2D, Doppler, and color-flow Echocardiogram Patient Location: Bedside Room #: 208 Status: routine BSA: 1.83 HR: 105 bpm BP: 112/70 mmHg Rhythm: Tachycardia Other Information Study Quality: Adequate Indications COPD Pleural Effusion 2D Dimensions RVDd: 30.85 mm IVSd: 9.43 (7-11mm) LVOT Diam: 21.63 (18-24mm) LVDd: 36.63 mm PWd: 9.96 (7-11mm) Ascending Ao: 30.62 (22-36mm) LVDs: 20.29 (25-40mm) Aortic Root: 31.43 mm IVC: 6.00 mm Volumes Left Atrial Volume (Systole) Single Plane 4CH: 36.31 mL Single Plane 2CH: 35.19 mL LA ESV Index: 22.00 mL/m2 Aortic Valve AoV Peak Ryan.: 1.29 m/s AO Peak Gr.: 6.66 mmHg LVOT Max P.93 mmHg LVOT Max V: 0.99 m/s ANNALISA Vmax: 2.82 cm2 [facility] [address] [address] 2 D/M-MODE ECHOCARDIOGRAM Name: RODRIGONAVA Room #: 208-P [facility] IN [facility]#: [id number] Admission: 10/24/20 Attend Phys: Yair Champion MD Discharge: Date of : 63 Report #: [id number] Mitral Valve E/A Ratio: 0.7 MV Decel. Time: 184.82 ms MV E Max Ryan.: 0.64 m/s MV A Ryan.: 0.98 m/s MV PHT: 53.60 ms IVRT: 99.19 ms Pulmonary Valve PV Peak Ryan.: 0.97 m/s PV Peak Gr.: 3.81 mmHg Pulmonary Vein P Vein S: 0.40 m/s P Vein A: 0.38 m/s P Vein D: 0.46 m/s P Vein A Dur.: 85.4 msec P Vein S/D Ratio: 0.87 Tricuspid Valve TR Peak Ryan.: 2.61 m/s RAP Estimate: 5.00 mmHg TR Peak Gr.: 27.27 mmHg PA Pressure: 32.00 mmHg Left Ventricle The left ventricle is normal size. There is normal LV segmental wall motion. There is normal left ventricular wall thickness. The left ventricular systolic function is normal. The left ventricular ejection fraction is within the normal range. LVEF is 65%. Mild diastolic dysfunction is present (impaired relaxation pattern). Right Ventricle The right ventricle is normal size. The right ventricular systolic function is normal. Atria The left atrium size is normal. The right atrium size is normal. Aortic Valve The aortic valve is normal in structure. No aortic regurgitation is present. There is no aortic valvular stenosis. Mitral Valve The mitral valve is normal in structure. There is no mitral valve regurgitation noted. No evidence of mitral valve stenosis. [facility] [address] [place] [address] 2 D/M-MODE ECHOCARDIOGRAM Name: NAVA WALLACE Room #: 208-P ADM IN .R.#: [id number] Admission: 10/24/20 Attend Phys: Yair Champion MD Discharge: Date of : 63 Report #: [id number] Tricuspid Valve The tricuspid valve is normal in structure. Trace tricuspid regurgitation. PAP is estimated at 32 mmHg. Pulmonic Valve The pulmonary valve is normal in structure. Trace pulmonic regurgitation. Great Vessels The aortic root is normal in size. IVC is normal in size and collapses >50% with inspiration. Pericardium There is no pericardial effusion. <Conclusion> The left ventricle is normal size. LVEF is 65%. The aortic valve is normal in structure. The mitral valve is normal in structure. The tricuspid valve is normal in structure. Trace tricuspid regurgitation. PAP is estimated at 32 mmHg. The pulmonary valve is normal in structure. Trace pulmonic regurgitation. There is no pericardial effusion. <ELECTRONICALLY SIGNED> By: Chivo Vaz MD 11/06/20 1016 1016 1016 Chivo Vaz MD /INF
--- NOTE | 2020-11-06 16:26 | NUR ---
FAXED REFERRAL TO [facility] FOR HOME O2 PT HAS NO INSURANCE SPOKE WITH LOBO HERNANDEZ AT [facility] HE RECEIVED REFERRAL AND WILL NEED TO TALK TO HIS CASH REGISTER BALANCER REGARDING [facility].
--- NOTE | 2020-11-06 18:25 | NUR ---
PT CARE ASSUMED AT 0700. ASSESSMENTS CHARTED. MEDICATIONS CHARTED. PICC 3L CLAUDIA. TOILET. CXR; SM TO MOD RT PLEURAL EFFUSIONS AND ATELECTASIS RLL. POOR APETITE.
[2020-11-07 03:40] VITALS: BP 117/81
--- NOTE | 2020-11-07 07:33 | NUR ---
PAIN FAIRLY CONTROLLED.NO COMPLAINTS.MONITOR SHOWS SR,ST.POC CONTINUED.
[2020-11-07 12:30] VITALS: BP 135/89
--- NOTE | 2020-11-07 14:59 | NUR ---
Spoke with patient. She has no health insurance. Millicent has submitted medicaid application. Patient reports she has no means to pay for medications. Resources for prescriptions assistance, [facility], safety net clinic information, [facility] for f/u care. Patient reports she will dc with her dtr who resides in [place].
[2020-11-07 16:30] LABS: CALCIUM 8.8 mg/dL (8.5-10.1); CREATININE 0.7 mg/dL (0.6-1.0); POTASSIUM 3.9 mmol/L (3.5-5.1)
[2020-11-07 20:26] VITALS: BP 127/63
--- NOTE | 2020-11-07 20:31 | NUR ---
RECEIVED CARE AROUND 0750; PT. ON BED; ALERT; C/O PAIN; DURING AM ASSESSMENT PT. AOX4; PRN PAIN MEDICATION GIVEN WITH AM MEDICATIONS; EDUCATED ABOUT FALL PRECAUTIONS; ST. UNDERSTANDING; ST ON THE MONITOR WITH EXERTION; REQUESTED TO REST AFTER AM MEDICATIONS; ST. INCISION HAS A MAL ODORUS SMELL AFTER SIMÓN REMOVE; NO SMELL NOTICED; PHYSICIAN NOTIFIED; NO NEW ORDERS; ASSESSMENT CHARGED; FOLLOWING POC; PASSED ON REPORT;
[2020-11-08 05:00] VITALS: BP 101/73
[2020-11-08 07:54] VITALS: BP 117/75
[2020-11-08 11:05] VITALS: BP 103/90
[2020-11-08 15:29] VITALS: BP 108/82
--- NOTE | 2020-11-08 18:36 | NUR ---
PATIENT A&OX4, VSS, C/O PAIN MOST IN RIGHT FLANK. XRAY TAKEN TODAY. PAIN MEDICATON GIVEN WITH PARTIAL RELIEF. PATIENT EDUCATED ON USING INCENTIVE SPIROMETER. SURGICAL INCISION APPROXIMATED, HAS SIMÓN AND MOVEMAN, ALSO THREE LAP SITES, ALL C/D/I. ASSESSMENT COMPLETED. PATIENT STATED SHE DID HAVE BM TODAY, ABDOMEN DISTENDED AND SOFT. LUNGS CLEAR AND ROOM AIR WITH 96-100% SATS. MONITORED ON TELEMETRY, SR TO ST. NO SIGNS OF DISTRESS. WILL CONTINUE TO MONITOR.
[2020-11-08 19:50] VITALS: BP 120/77
[2020-11-09 04:00] VITALS: BP 109/69
[2020-11-09 07:30] VITALS: BP 98/74
--- NOTE | 2020-11-09 10:53 | NUR ---
08:00-MEDICATED FOR ABDOMEN,FLANK PAIN WITH MEDICINE SHE IS REPORTING A PAIN OF 8-10 AND WORSE WITH INSPIRATION. LUNG SOUNDS ARE DIMINSIHED IN GENERAL, NO COUGH, NO SIGN'S OF SOB SO MUCH ANXIETY? WILL MONITOR FOR SUCH.
--- NOTE | 2020-11-09 10:54 | NUR ---
PT. C/O PAIN AND WITH INSPIURATION. SLATED FOR A CT SCAN OF CHEST AND ABDOMEN THIS AM-THEY CALLED AND SHOULD BE UP SHORTLY TO GET HER FOR SUCH. DID NOT EAT MUCH AT ALL THIS AM-WEAK APPETITE.
--- NOTE | 2020-11-09 11:36 | EKG ---
[address] [address] ELECTROCARDIOGRAM REPORT Name: NAVA WALLACE Room #: 208-P ADM IN M.R.#: [id number] Admission: 10/24/20 Attend Phys: Yair Champion MD Discharge: Date of : 63 Report #: [id number] [facility] Test Date: 2020-11-09 Test Time: 09:28:02 Pat Name: NAVA WALLACE Department: Room: 208 P Gender: F Experimental Physicist: DREA : 1965 Requested By: Stefanie Gallardo Order Number: [id number] MD: Jet Jimenez Measurements Intervals [place] Rate: 109 P: 66 CA: 137 QRS: 37 QRSD: 82 T: 45 QT: 342 QTc: 461 Interpretive Statements Sinus tachycardia Left atrial enlargement Compared to ECG 11/06/2020 07:32:44 No significant changes Electronically Signed On 11-09-2020 11:36:20 PRECISION ASSEMBLER BENCH by Jet Jimenez [email or web address] <ELECTRONICALLY SIGNED> By: Jet Jimenze MD, [facility] 11/09/20 1136 0928 7 Jet Jimenez MD, [facility] /EPI
[2020-11-09 11:52] VITALS: BP 112/87
--- NOTE | 2020-11-09 15:45 | NUR ---
DAUGHTER CALLED IN REGARDS TO AN UPDATE ON PT.S SITUATION AND I EXPLAINED ALL HER TESING CAME BACK NEGATIVE FOR ANY COMPLICATIONS. TRIED TO EDUCATE FAMILY AND PATIENT ON WHAT A PLEURAL EFFUSION WAS AND THE PAIN ASSOCIATED WITH SUCH. SHE HAS A VERY LOW TOLERANCE FOR ANY PAIN AND HER CONDITION HAS A CONSIDERABLE AMOUNT OF PAIN INVOLVED WITH RECOVERY SO SHE MENTALLY NEEDS TO GRASP THIS IS GOING TO TAKE AWILE TO RESOLVE AND FOR HER TO FEEL BETTER. DAUGHTER LINDSAY WAS VERY RECEPTIVE AND INVOLVED.
[2020-11-09 15:48] VITALS: BP 101/72
--- NOTE | 2020-11-09 18:14 | NUR ---
Daughter returned the call I places at 2pm for d/c transport now and said she could not pick her up until 1:30pm tommorow once she was off work. Will pass this along to Dr. Lim now. Medicated with fentanyl for pain 04/12 at this time right lung area, explained her pleral effusion situation at this time in laymens term as much as possible ans she is going home tommorow so this will have to be managed with her discharge medications for such. Explained such to daughter as well.
--- NOTE | 2020-11-09 19:24 | NUR ---
PT. WILL D/C TOMMOROW DAUGHTER WILL PICK ER UP PROMPLTUY AT 1:30PM. MEDICATED FOR PAIN AND NOW ASLEEP.
[2020-11-09 20:35] VITALS: BP 112/84
--- NOTE | 2020-11-10 03:42 | NUR ---
0001 SPOKE WITH RADHA COMPUTER SCIENCE TEACHER DO TO ELEVATED PAIN SCORES AND TO SOON FOR MEDICATION. TO BE DISCHARGED IN AM SO USING PO PAIN MEDICATIONS. MEDICATIONS ORDERS RECIEVED. AWAITING PHARMACY TO VERIFY. 0045: PAIN MEDICATION AND ATIVAN GIVEN PER REQUEST. 0345: SLEEPING WITHOUT PRESENT COMPLAINTS. WORKING ON GOALS AND PLAN OF CARE FOR NOC. PROGRESSING SLOWLY TOWARDS DISCHARGE GOALS. UP TO BATHROOM WITH STEADY GAIT. CONTINUE TO ASSES CLOSELY.
[2020-11-10 05:06] VITALS: BP 99/68
[2020-11-10 08:00] VITALS: BP 100/70
[2020-11-10 08:05] VITALS: BP 143/61
[2020-11-10 10:42] VITALS: BP 119/81
[2020-11-10 10:52] VITALS: BP 119/81
[2020-11-10 11:24] VITALS: BP 119/81
[2020-11-10] MEDS ORDERED: COMBIVENT INH (11:50)
--- NOTE | 2020-11-10 14:47 | NUR ---
PT. IS NOT C/O PAIN TODAY AT ALL LIKE YESTERDAY WHEN I HAD HER. DENIES SOB. SELF AMBULATED ALL DAY AND TOOK A SHOWER WITH NO ISSUES EARLIER TODAY. HAD A BM TODAY WELL. "READY TO GO HOME". MUCH CLAMER TODAY THEN YESTERDAY WELL. ALL MEDICATIONS PERSCRIBED HAVE BEEN COMP'D AND READY FOR HER TO TAKE HOME DISCHARGE WITH. PICC LINE FROM RIGHT BICEPT REMOVED JUST NOW PER ME WITH NO ISSUES AT ALL, NO HEMATOMA, NO BLESSING AT SITE.
--- NOTE | 2020-11-10 15:31 | NUR ---
Pt dcing home this afternoon with her dtr. Three scripts vouchered for a total of $35. Inhaler not available per the outpt pharmacy and will not be covered by [place] Medicaid. Pt provided resouces and instructions for establishing followup care at ma. Pt cleared by RT to dc home with no oxygen needs. [employer] following up with the pt's medicaid application as it has been submitted. No other cm inteventions indicated.
--- NOTE | 2020-11-10 18:12 | NUR ---
CASE MANAGEMENT : HER DAUGHTERS CONTACT INFO: LINDSAY ADDRESS IS : [facility] [place] [phone] PHONE .
== END 2020-11-10 16:44 | disposition home or self-care (01) | DRG 853 ==
LOC: ER 05:17 → 2N 10:36 → 4S 10:36 → EROBS 10:36 → 4S 11:27 → ICU 10-26 15:20 → 2N 10-31 17:19
PROVIDERS: Emergency Medicine; Internal Medicine; Nurse Practitioner; Specialist; Student in an Organized Health Care Education/Training Program; ADMIT Hospitalist; ATTEND Hospitalist
PROC: 02H633Z Insertion of Infusion Device into Right Atrium, Percutaneous Approach (ICD-10-PCS; principal; 2020-10-26)
PROC: 0DJ64ZZ Inspection of Stomach, Percutaneous Endoscopic Approach (ICD-10-PCS; 2020-10-26)
PROC: 0DB80ZZ Excision of Small Intestine, Open Approach (ICD-10-PCS; 2020-10-26)
DX: A41.9 Sepsis, unspecified organism (principal); K65.9 Peritonitis, unspecified; R65.21 Severe sepsis with septic shock; K63.1 Perforation of intestine (nontraumatic); E43 Unspecified severe protein-calorie malnutrition; J96.01 Acute respiratory failure with hypoxia; J18.9 Pneumonia, unspecified organism; K56.609 Unspecified intestinal obstruction, unspecified as to partial versus complete obstruction; N17.9 Acute kidney failure, unspecified; F14.20 Cocaine dependence, uncomplicated; K56.7 Ileus, unspecified; J44.0 Chronic obstructive pulmonary disease with (acute) lower respiratory infection; F19.10 Other psychoactive substance abuse, uncomplicated; E03.9 Hypothyroidism, unspecified; F17.210 Nicotine dependence, cigarettes, uncomplicated; E87.6 Hypokalemia; I95.9 Hypotension, unspecified; F43.10 Post-traumatic stress disorder, unspecified; Z20.822 Contact with and (suspected) exposure to COVID-19; B19.20 Unspecified viral hepatitis C without hepatic coma; D64.9 Anemia, unspecified; D47.3 Essential (hemorrhagic) thrombocythemia; Z88.2 Allergy status to sulfonamides; Z88.8 Allergy status to other drugs, medicaments and biological substances; Z68.31 Body mass index [BMI] 31.0-31.9, adult
CPT/HCPCS: 10078; 10081; 10195; 27000; 50101; 50411; 50445; 50555; 51412; 51489; 51708; 51712; 52265; 52266; 53307; 53314; 56462; 56525; 56526; 56527; 56528; 56529; 57103; 62110; 62900; 70005